=== PATIENT | female | born 1995 | race Hispanic/Latino ===

== ENCOUNTER 2021-05-18 10:49 | Emergency (ER) | payer BC, SELFPAY | END 2021-05-18 12:39 | disposition home or self-care (01) | LOC: CSHERS 10:49 | DX: S90.31XA Contusion of right foot, initial encounter (principal); Z87.891 Personal history of nicotine dependence; W20.8XXA Other cause of strike by thrown, projected or falling object, initial encounter ==

== ENCOUNTER 2021-09-16 17:27 | Emergency (ER) | payer SELFPAY ==
[2021-09-16] MEDS ORDERED: methylPREDNISolone Sod Succ/PF 125 MG/2 ML VIAL ONE (18:37)
[2021-09-16] MEDS ORDERED: Ketorolac Tromethamine 30 MG/ML VIAL ONE (18:37)
[2021-09-16] MEDS ORDERED: diphenhydrAMINE 50 MG/ML VIAL ONE (18:37)
[2021-09-16] MEDS ORDERED: Metoclopramide HCl 10 MG/2 ML VIAL ONE (18:38)
== END 2021-09-16 20:11 | disposition home or self-care (01) ==
LOC: CSHERS 17:27
DX: G43.909 Migraine, unspecified, not intractable, without status migrainosus (principal); Z87.891 Personal history of nicotine dependence
CPT/HCPCS: 96365; 96375; J1200; J1885; J2765; J2930

== ENCOUNTER 2023-08-05 16:56 | Emergency (ER) | payer SELFPAY ==
[2023-08-05] MEDS ORDERED: Ondansetron PF 4 MG/2 ML Vial ONE (17:54)
[2023-08-05] MEDS ORDERED: Ketorolac Tromethamine 30 MG/ML VIAL ONE (17:54)
[2023-08-05] MEDS ORDERED: Acetaminophen 500 MG TAB ONE (17:55)
[2023-08-05 18:22] LABS: #Monocytes 0.5 10x3/uL (0.0-1.1); #Neutrophils 9.8 10x3/uL (1.5-8.4); %Basophils 0.3 % (0.0-2.0); %Eosinophils 0.1 % (0.0-6.0); %Monocytes 4.3 % (0.0-10.0); %Neutrophils 83.9 % (40.0-75.0); Hematocrit 40.1 % (34.9-44.5); Hemoglobin 12.8 g/dL (12.0-15.5); Mean Corpuscular HGB CONC 31.9 g/dL (32.0-36.0); Mean Corpuscular Hemoglobin 27.4 pg (27.0-33.0); Mean Corpuscular Volume 85.9 fl (81.6-98.3); Platelet Count 250 10x3/uL (150-450); RBC Distribution Width 13.4 % (11.5-14.5); Red Blood Cell (RBC) Count 4.67 10x6/uL (3.90-5.03); White Blood Cell (WBC) Count 11.7 10x3/uL (3.5-10.5)
[2023-08-05 18:43] LABS: ALT (SGPT) 17 U/L (8-55); AST (SGOT) 17 U/L (5-34); Alkaline Phosphatase 75 U/L (40-110); Anion Gap 16 mmol/L (10-20); BUN (Urea Nitrogen) 6 mg/dL (7.0-18.7); Bilirubin, Total 0.3 mg/dL (0.2-1.2); Calc. Creatinine Clearance 0 mL/min (70-130); Calcium 9.3 mg/dL (7.8-10.44); Carbon Dioxide 21 mmol/L (22-29); Chloride 105 mmol/L (98-107); Estimated GFR 108; Globulin 3.6 g/dL (2.4-3.5); Glucose 109 mg/dL (70-105); Lipase 11 U/L (8-78); Magnesium 1.7 mg/dL (1.6-2.6); Potassium 3.8 mmol/L (3.5-5.1); Protein, Total 7.6 g/dL (6.0-8.3); Sodium 138 mmol/L (136-145)
[2023-08-05 18:49] LABS: Troponin I Less than 0.010 ng/mL (< 0.028)
[2023-08-05 19:11] LABS: SARS-CoV-2 NAA Rapid Test Not Detected (NotDetected)
[2023-08-05 19:13] LABS: Bilirubin Neg (Negative); Blood, Urine 25 (Negative); Glucose, Urine (Dipstick) Normal (Negative); Ketone, Urine Negative (Negative); Leukocyte Negative (Negative); Nitrite Negative (Negative); Protein, Urine (Dipstick) Negative (Neg-Trace); Specific Gravity, Urine 1.015 (1.005-1.030); Urobilinogen Normal mg/dL (Less than 2)
[2023-08-05 19:23] LABS: Clarity Hazy (Clear)
[2023-08-05 19:32] LABS: CAUTI Indications for Culture Pelvic or flank pain; WBC/HPF 0-3 HPF (0-3)
[2023-08-05 19:33] LABS: Bacteria/HPF 1+ HPF (None Seen)
[2023-08-05 19:34] LABS: Mucous/LPF 1+ LPF (<2+); Urine Culture Reflex No No
== END 2023-08-05 20:14 | disposition home or self-care (01) ==
LOC: CSHERS 16:56
DX: R50.9 Fever, unspecified (principal); R05.9 Cough, unspecified; Z20.822 Contact with and (suspected) exposure to COVID-19
CPT/HCPCS: 36415; 70450; 71045; 80053; 81001; 83605; 83690; 83735; 84484; 85025; 87040; 87086; 96374; 96375; J1885; J2405